=== PATIENT | male | born 1985 | race Caucasian/White ===

== ENCOUNTER 2018-08-06 11:49 | Emergency (ER) | payer BC ==
[2018-08-06 13:34] VITALS: BP 130/80
--- NOTE | 2018-08-06 13:55 | UC ---
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 - History of Current Complaint Chief Complaint: UCUpperExtremity Stated Complaint: RIGHT ARM CONCERN Hx Obtained From: Patient Onset/Duration: Sudden Onset, Lasting Hours Severity Initially: Moderate Severity Currently: Mild Pain Intensity: 0 Pain Scale Used: 0-10 Numeric Associated Signs And Symptoms: Positive: Weakness, Numbness/Tingling Related History: Dominant Hand Right Body - Head: 1 - numb 2 - mild wrist drop/weakness - Allergies/Home Medications Allergies/Adverse Reactions: Allergies Allergy/AdvReac Type Severity Reaction Status Date / Time No Known Allergies Allergy Verified 08/06/18 13:35 Home Medications: Home Medications Ibuprofen TAB* [Advil TAB*] 400 mg PO Q6H PRN 08/06/18 [History Confirmed ] PMH/Surg Hx/FS Hx/Imm Hx - Surgical History Surgical History: None - Social History Alcohol Use: ~3 beers daily Substance Use Type: Marijuana Substance Use Comment - Amount & Last Used: "Once or twice a day" Smoking Status (MU): Heavy Every Day Tobacco Smoker Type: Cigarettes Amount Used/How Often: ~1/2 PPD Length of Time of Smoking/Using Tobacco: Since Age 19 Household Exposure Type: Cigarettes Review of Systems All Other Systems Reviewed And Are Negative: Yes Constitutional: Positive: Negative Skin: Positive: Negative Eyes: Positive: Negative ENT: Positive: Negative, Dental Pain Respiratory: Positive: Negative Cardiovascular: Positive: Negative Gastrointestinal: Positive: Negative Genitourinary: Positive: Negative Motor: Positive: Weakness - right wrist and fingers Neurovascular: Positive: Decreased Sensation - dorsum of right forearm Musculoskeletal: Positive: Negative Neurological: Positive: Negative Psychological: Positive: Negative Physical Exam Triage Information Reviewed: Yes Appearance: Well-Appearing, No Pain Distress, Well-Nourished Vital Signs: Initial Vital Signs Temp 98.1 F 08/06/18 13:29 Pulse 86 08/06/18 13:29 Resp 16 08/06/18 13:29 BP 130/80 08/06/18 13:29 Pulse Ox 100 08/06/18 13:29 Vital Signs Reviewed: Yes Eye Exam: Normal Eyes: Positive: Conjunctiva Clear ENT: Positive: Hearing grossly normal. Negative: Nasal congestion, Nasal drainage, Trismus, Muffled voice, Hoarse voice Neck: Positive: Supple, Nontender, No Lymphadenopathy Respiratory: Positive: Lungs clear, Normal breath sounds, No respiratory distress, No accessory muscle use Cardiovascular: Positive: RRR, No Murmur Musculoskeletal: Positive: Strength Limited @ - limited extension right wrist and fingers, weak Neurological: Positive: Muscle Tone Normal Psychological Exam: Normal Skin Exam: Normal Upper Extremity Course/Dx - Differential Dx/Diagnosis Provider Diagnosis: Right wrist drop, Acute radial nerve palsy Discharge - Sign-Out/Discharge Documenting (check all that apply): Patient Departure All imaging exams completed and their final reports reviewed: No Studies - Discharge Plan Condition: Stable Disposition: HOME Patient Education Materials: Radial Nerve Palsy (ED) Forms: *Work Release Referrals: Connor Daniels MD [Medical Doctor] - 4 Days (if not better) Additional Instructions: You have a radial nerve palsy due to pressure on your nerve while sleeping It has already started to improve and I suspect a full recovery currently you don't need splinting or PT ice may help I suggest you take a couple of aleve twice daily until better get seen next week if not better - Billing Disposition and Condition Condition: STABLE Disposition: Home
== END 2018-08-06 14:06 | disposition home or self-care (01) ==
LOC: UCCORT 11:49
DX: M21.331 Wrist drop, right wrist (principal); G56.31 Lesion of radial nerve, right upper limb; F17.210 Nicotine dependence, cigarettes, uncomplicated
CPT/HCPCS: 99201; G0463